=== PATIENT | male | born 2005 | race Caucasian/White ===

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

== ENCOUNTER 2024-05-13 14:01 | Emergency (ER) | payer OTHER ==
[~2024-05-13] VITALS: Ht 165.1 cm; Wt 111.1 kg
[~2024-05-13 14:01] MED LIST changes: +ABILIFY20 MG PO; +ACID CONTROL150 MG PO; +ATARAX25 MG PO; +CITALOPRAM HBR20 MG PO; +DOLOGEN 325-11 EACH PO; +DOLOGESIC-DF 51 EACH PO; +ZOFRAN ODT4 MG PO
[2024-05-13] MEDS ORDERED: LEXAPRO20 MG PO (14:41)
[2024-05-13] MEDS ORDERED: BUSPIRONE HCL7.5 MG PO (14:41)
[2024-05-13] MEDS ORDERED: IBUprofen 800 MG TABLET PO ONE (15:30)
== END 2024-05-13 17:51 | disposition home or self-care (01) ==
LOC: ER 14:02 → EMR PED 14:44 → ER 14:44 → EMR PED 17:51
DX: S43.004A Unspecified dislocation of right shoulder joint, initial encounter (principal); X58.XXXA Exposure to other specified factors, initial encounter; Y93.9 Activity, unspecified; Y92.9 Unspecified place or not applicable; Y99.9 Unspecified external cause status

== ENCOUNTER 2024-06-23 18:24 | Emergency (ER) | payer OTHER ==
[~2024-06-23] VITALS: Ht 165.1 cm; Wt 109.8 kg
[~2024-06-23 18:24] MED LIST changes: +BUSPIRONE HCL7.5 MG PO; +LEXAPRO20 MG PO
[2024-06-23] MEDS ORDERED: 0.9 % SODIUM CHLORIDE 1,000 ML IV STA (18:45)
[2024-06-23] MEDS ORDERED: FAMOTIDINE/PF 20 MG/2 ML VIAL IV STA (18:46)
[2024-06-23] MEDS ORDERED: ONDANSETRON HCL 2 MG/ML VIAL IV STA (18:46)
[2024-06-23] MEDS ORDERED: ONDANSETRON HCL 2 MG/ML VIAL ONE (18:53)
[2024-06-23] MEDS ORDERED: FAMOTIDINE/PF 20 MG/2 ML VIAL ONE (18:54)
[2024-06-23 19:56] LABS: HEMATOCRIT 46.7 % (39.0-48.0); HEMOGLOBIN 15.9 g/dL (13-16.00); MEAN CELL VOLUME 87.9 fL (80.0-100.00); MEAN CORPUSCULAR HEMOGLOBIN 29.8 pg (27.00-32.0); PLATELET COUNT 284 K/uL (150-450); RED BLOOD COUNT 5.32 M/uL (4.00-6.00); RED CELL DISTRIBUTION WIDTH 13.4 % (11.5-14.5)
[2024-06-23 20:01] LABS: INR 1.09; PROTHROMBIN TIME 11.8 SECONDS (9.0-11.5)
[2024-06-23 20:08] LABS: ALBUMIN 4.3 gm/dL (3.4-5.0); BILIRUBIN TOTAL 0.81 mg/dL (0.3-1.2); CALCIUM 9.8 mg/dL (8.5-10.1); CREATININE SERUM 0.98 mg/dL (0.70-1.30); GFR 98.53; POTASSIUM 3.91 mEq/L (3.5-5.1); TOTAL PROTEIN 8.3 gm/dL (6.4-8.2)
[2024-06-23 21:15] LABS: ob NEGATIVE (NEGATIVE)
== END 2024-06-24 00:18 | disposition home or self-care (01) ==
LOC: ER 18:25 → EMR PED 18:28 → ER 18:28 → EMR PED 06-24 00:18
DX: K92.0 Hematemesis (principal); K92.1 Melena; Z20.822 Contact with and (suspected) exposure to COVID-19; Z91.013 Allergy to seafood